=== PATIENT | female | born 1955 | race Caucasian/White ===

== ENCOUNTER → 2018-12-23 09:32 | Outpatient (CLI) | payer OTHER, SELFPAY ==
--- NOTE | 2018-12-23 | DI.MG.S_ITS ---
BILATERAL DIGITAL DIAGNOSTIC MAMMOGRAM 3D/2D WITH AUGMENTATION: 12/23/2018 CLINICAL: Left breast pain. family history of breast cancer. Comparison is made to exams dated: 03/30/2017 mammogram and 11/02/2012 mammogram - [facility]. There are scattered fibroglandular elements in both breasts. No significant masses, calcifications, or other findings are seen in either breast. IMPRESSION: INCOMPLETE: NEEDS ADDITIONAL IMAGING EVALUATION There is no abnormality seen in the left breast to correspond with the palpable abnormality in the upper outer quadrant, however, ultrasound is recommended. The implants have calcification of the capsule. The implants show no evidence of rupture. This exam was interpreted at Station ID: [id number]. NOTE: For mammograms, a report in lay terms will be sent to the patient. Approximately 15% of breast malignancies will not be visualized mammographically. In the management of a palpable breast mass, a negative mammogram must not discourage biopsy of a clinically suspicious lesion. Electronically Signed By: Dharmesh selby/kenan:12/23/2018 10:33:04 ACR BI-RADS Category 0: Incomplete [id number]
--- NOTE | 2018-12-23 | DI.US.S_ITS ---
LIMITED ULTRASOUND OF LEFT BREAST: 12/23/2018 CLINICAL: Diffuse left breast pain. Focal left breast pain. Comparison is made to exams dated: 12/23/2018 mammogram - [facility], 03/30/2017 mammogram, 04/25/2014 mammogram, and 11/02/2012 mammogram - [facility]. Real-time ultrasound of the left breast upper outer quadrant was performed on the area of interest. IMPRESSION: NEGATIVE There is no sonographic evidence of malignancy. There is no abnormality seen in the left breast to correspond with the palpable abnormality in the upper outer quadrant, however, clinical followup is recommended. A 1 year screening mammogram is recommended. This exam was interpreted at Station ID: [id number]. Electronically Signed By: Dharmesh selby/kenan:12/23/2018 15:00:27 letter sent: Clinical Evaluation Ultrasound BI-RADS: 1 Negative
== END ==
PROVIDERS: PCP Nurse Practitioner; Visit Provider Nurse Practitioner
DX: R92.8 Other abnormal and inconclusive findings on diagnostic imaging of breast (principal); N64.4 Mastodynia; Z80.3 Family history of malignant neoplasm of breast
CPT/HCPCS: 76642; 77066; G0279

== ENCOUNTER → 2021-09-16 13:24 | Outpatient (CLI) | payer OTHER, SELFPAY ==
--- NOTE | 2021-09-16 | DI.US.S_ITS ---
PROCEDURE: US THYROID INDICATIONS: Nontoxic single thyroid nodule TECHNIQUE: Real-time scanning was performed of the thyroid gland, with image documentation. COMPARISON: None. FINDINGS: Right: Thyroid lobe measures 3.6 x 1.2 x 1.1 cm, and is homogeneous in echotexture. Left: Thyroid lobe measures 4.5 x 1.3 x 1.3 cm, and is homogenous in echotexture. Isthmus: 2.3 mm thick. No thyroid nodules or masses identified. IMPRESSION: No thyroid nodules identified. ACR TI-RADS definitions and recommendations: TI-RADS 1 (benign): 0 points. FNA not needed. TI-RADS 2 (not suspicious): 2 points. FNA not needed. TI-RADS 3 (mildly suspicious): 3 points. * FNA if 2.5 cm or larger, follow up if 1.5 cm or larger (at 1, 3, and 5 years). TI-RADS 4 (moderately suspicious): 4-6 points. * FNA if 1.5 cm or larger, follow up if 1 cm or larger (at 1, 2, 3, and 5 years). TI-RADS 5 (highly suspicious): 7 points or more. * FNA if 1 cm or larger, follow up if 0.5 cm or larger (every year for 5 years). Dictated by: Lee Ann Coleman MD, PhD on 09/16/2021 at 14:47 Approved by: Lee Ann Coleman MD, PhD on 09/16/2021 at 14:53
== END ==
PROVIDERS: PCP Internal Medicine; Referring Provider Internal Medicine; Visit Provider Internal Medicine
DX: E04.1 Nontoxic single thyroid nodule (principal)
CPT/HCPCS: 76536